=== PATIENT | male | born 1970 | race Hispanic/Latino ===

== ENCOUNTER → 2018-12-18 | Outpatient (CLI) | payer OTHER ==
[~2018-12-18] MED LIST: QUINAPRIL HCL10 MG PO
--- NOTE | 2018-12-18 10:39 | Diagnostic Imaging Report ---
TECHNIQUE: Magnetic resonance imaging of the RIGHT SHOULDER was performed WITHOUT injected contrast. COMPARISON: None available. HISTORY: Right shoulder pain FINDINGS: MUSCLES AND TENDONS: Rotator Cuff: Tendons: Mild rotator cuff tendinopathy with thickening of the infraspinatus tendon. Articular sided fraying of the supraspinatus tendon. Muscles: No focal muscle atrophy. Biceps Tendon: The long head of the biceps tendon is within the bicipital groove. Tendinopathy with partial tearing. GLENOHUMERAL JOINT: Glenoid Labrum: Superior labral tearing. Articular Cartilage: No focal defect. AC JOINT AND ACROMION: Mild hypertrophic degenerative changes of the acromioclavicular joint. The acromion is unremarkable. BONE: No acute fracture. SOFT TISSUES: Subacromial subdeltoid bursal fluid. IMPRESSION: Mild rotator cuff tendinosis with articular sided fraying of the supraspinatus tendon. No full-thickness tear, retraction, or atrophy. Superior labral tearing. Long head biceps tendinopathy with partial tearing Subacromial subdeltoid bursal fluid/bursitis. Signed by: Dr. Phill Riley M.D. on 12/18/2018 10:36 AM
== END ==
LOC: MRI 08:28
PROVIDERS: ATTEND Family Medicine
DX: S46.911D Strain of unspecified muscle, fascia and tendon at shoulder and upper arm level, right arm, subsequent encounter (principal)

== ENCOUNTER → 2021-05-13 | Day surgery (SDC) | payer OTHER ==
[~2021-05-13] MED LIST changes: +BUPIVACAINE 0.25% 30ML SDV ONE; +FENTANYL CITRATE/PF 100MCG/2 ML INJ ONE; +FLONASE ALLERG9.9 ML INH; +LIDOCAINE HCL 2% LOCAL INJ 5 ML SDV VIAL INJ ONE; +METOCLOPRAMIDE HCL 10 MG/2ML VIAL ONE; +MIDAZOLAM HCL 2 MG/2 ML VIAL ONE; +ONDANSETRON HCL INJ 2MG/ML 2ML 2 MG/ML VIAL ONE; +POVIDONE IODINE 0.05% 0.05 % ML PO ONE; +PROPOFOL IV EMULSION 10 MG/ML 20 ML VIAL ONE; +QUINAPRIL HCL20 MG PO
[2021-05-13 10:50] VITALS: BP 108/84
== END | disposition home or self-care (01) ==
LOC: OR 08:23
PROVIDERS: ATTEND Internal Medicine Gastroenterology
DX: R19.5 Other fecal abnormalities (principal); Z86.010 Personal history of colon polyps; K57.30 Diverticulosis of large intestine without perforation or abscess without bleeding; K64.8 Other hemorrhoids; I10 Essential (primary) hypertension; Z01.810 Encounter for preprocedural cardiovascular examination; Z01.812 Encounter for preprocedural laboratory examination; Z20.822 Contact with and (suspected) exposure to COVID-19
CPT/HCPCS: 45378; 93005; J2001; J2250; J2405; J2704; J2765; J3010; U0002